=== PATIENT | female | born 1995 | race Caucasian/White ===

== ENCOUNTER 2018-03-28 22:21 | Inpatient (IN) ==
--- NOTE | 2018-03-28 22:46 | Emergency Department Note ---
Disposition Clinical Impression: Suicidal ideation, Suicide attempt, Auditory hallucinations Urinary tract infection Qualifiers: Urinary tract infection type: acute cystitis Hematuria presence: without hematuria Qualified Code(s): N30.00 - Acute cystitis without hematuria Disposition: Admitted As Inpatient Condition: Fair Forms: ED Satisfaction Letter General Adult HPI - General Chief complaint: ED Psychiatric Symptoms Stated complaint: SI Time Seen by Provider: 03/28/18 22:22 Source: patient Mode of arrival: private vehicle Limitations: no limitations Nursing Notes Reviewed: Yes Vital Signs Reviewed: Yes - History of Present Illness HPI Narrative: Patient is a 22-year-old female with past medical history including anxiety and depression not on medication, seizure not on any antiepileptic medication, presenting with suicidal ideation and attempt. Patient states for the last week she feels like harming herself states she wants to kill herself. She tried twice this past week by overdosing on medication including Xanax and Suboxone. She also states she has auditory hallucinations telling her to harm herself that are worse when she takes a Xanax. Tonight, the patient took 3 bars of Xanax and 3 pills of Suboxone along with a 4 simba to kill herself. Patient was dropped off at her cousin's house and the cousin brought her in to get help. Patient complains of some left-sided abdominal pain and nausea otherwise denies any other complaints. She denies the intent to harm others. She has never received hospitalization in the past. She states she has not followed up with the psychiatrist either. Pain Scale: 0 - Related Data Home Medications Medication Instructions Recorded Confirmed [place] 5-325 mg 01/10/18 Previous Rx's Medication Instructions Recorded Naproxen [Naprosyn] 500 mg PO BID PRN #20 tablet 01/10/18 Allergies Allergy/AdvReac Type Severity Reaction Status Date / Time No Known Allergies Allergy Verified 01/10/18 16:18 All systems ED: reviewed and negative except as stated. Review of Systems: As Per HPI Constitutional: Denies: fever, chills Eyes: Denies: vision change ENT ED: Denies: throat pain, congestion Cardiovascular: Denies: chest pain, palpitations Respiratory: Denies: cough, dyspnea Gastrointestinal: Reports: abdominal pain, nausea. Denies: vomiting, diarrhea Genitourinary: Denies: dysuria Neurological: Denies: headache, weakness, paresthesias Psychiatric: Reports: anxiety, depression, suicidal thoughts, auditory coles llucinations. Denies: homicidal thoughts, visual hallucinations Past Medical History - Past Medical History Attestation: Yes The following information was validated with the patient. Source: patient Medical history: Reports: seizures Psychiatric history: Reports: no psych history - Social History Smoking Status: Current every day smoker Smokeless Tobacco Status: No Alcohol use: Reports: none Drug use: Reports: other Physical Exam - General Limitations: no limitations General appearance: alert, in no apparent distress - Head Head exam: atraumatic, normocephalic - Eye Eye exam: Present: normal appearance, PERRL, EOMI. Absent: conjunctival injection - ENT ENT exam: normal exam, normal oropharynx, mucous membranes moist - Neck Neck exam: Present: normal inspection, trachea midline - Chest Chest inspection: Present: normal inspection, symmetric chest wall rise - Respiratory Respiratory exam: Present: other (Bilateral expiratory wheezing with no rhonchi or rales.) - Cardiovascular Cardiovascular exam: Present: regular rate, normal rhythm, normal heart sounds - Abdominal Exam Abdominal exam: Present: soft, Non-Tender. Absent: tenderness, distention, guarding, rebound, rigidity - Extremities Exam Extremities exam: Present: normal inspection, full ROM. Absent: tenderness, pedal edema - Neurological Exam Neurological exam: Present: alert, oriented X3 - Psychiatric Psychiatric exam: Present: anxious, suicidal ideation - Skin Skin exam: Present: warm, dry, intact Course Vital Signs Temperature 97.8 F 03/28/18 22:26 Pulse Rate 106 03/28/18 22:26 Respiratory Rate 16 03/28/18 22:26 Blood Pressure 143/87 03/28/18 22:26 O2 Sat by Pulse Oximetry 100 03/28/18 22:26 Temperature 98.2 F 03/28/18 23:10 Pulse Rate 82 03/29/18 00:58 Respiratory Rate 16 03/29/18 00:58 Blood Pressure 110/74 03/29/18 00:58 O2 Sat by Pulse Oximetry 99 03/29/18 00:58 Oxygen Delivery Oxygen Delivery Room Air Medical Decision Making - MDM Narrative Medical decision making narrative: Patient presenting with suicidal ideation and attempt. She appears skittish and states the light is bothering her and complains of nausea. She is easily distractable. She also has auditory hallucinations. We will obtain medical clearance and pink slip signed out. Once labs return, psychiatry will evaluate the patient. Will call poison control at this time. 22:55 Discussed with poison control at this time who states symptomatic management and observation. If patient does experience [employer] depression we will give Narcan. If anything changes, we will update poison control. They will call back with lab results and EKG. 00:00 [facility] was notified that lab work is returned. Alcohol level <10. She does have a urinary tract infection which we will treat for with Keflex. She will be evaluated by [facility]. Urine drug screen positive for marijuana. Electrolytes normal. TSH normal. No other acute findings. 02:00 Discussed with [facility] psychiatry. They will accept the patient. Vitals have remained stable. She has no new complaints at this time. - Medical Records Medical records reviewed: Yes I reviewed the patient's medical records. - Lab Data Lab results reviewed: Yes I reviewed the patient's lab results. Result diagrams: 03/28/18 22:59 03/28/18 22:59 Lab Results 03/28/18 03/28/18 03/28/18 Range/Units 22:59 22:59 23:07 WBC 11.7 H (4.3-11.1) K/mcL RBC 4.74 (3.82-4.97) M/mcL Hgb 10.1 L (11.5-15.4) g/dL Hct 33.3 L (35.3-44.9) % MCV 70.3 L (83.0-100.0) fL MCH 21.3 L (28.0-33.3) pg MCHC 30.3 L (31.6-35.5) g/dL RDW 17.9 H (11.5-14.5) % Plt Count 354 (140-400) K/mcL MPV 9.3 L (9.4-12.4) fL Immature Gran % 0.4 (0-4) % Seg Neutrophils % 64.7 % Lymphocytes % 26.7 % Monocytes % 5.9 % Eosinophils % 2.0 % Basophils % 0.3 % Neutrophils # 7.6 (1.6-8.9) K/mcL Lymphocytes # 3.1 (0.6-4.6) K/mcL Monocytes # 0.7 (0.0-1.3) K/mcL Eosinophils # 0.2 (0.0-0.6) K/mcL Basophils # 0.0 (0.0-0.2) K/mcL Sodium 140 (136-145) mEq/L Potassium 3.8 (3.5-5.1) mEq/L Chloride 110 H (98-107) mEq/L Carbon Dioxide 23 (23-29) mEq/L BUN 8 (6-20) mg/dL Creatinine 0.58 L (0.60-1.20) mg/dL Est GFR ( Amer) > 60 (> 60) Est GFR (Non-Af Amer) > 60 (> 60) BUN/Creatinine Ratio 14 (6-26) Glucose 83 (70-105) mg/dL Calculated Osmolality 287 (280-300) Calcium 9.2 (8.6-10.3) mg/dL TSH 1.318 (0.340-5.600) mcIU/mL Urine Color Yellow (Yellow) Urine Clarity Cloudy A (Clear) Urine pH 6.5 (5.0-8.0) pH Units Ur Specific [place] 1.029 H (1.010-1.025) Urine Protein Negative (Neg-Trace) mg/dL Urine Glucose (UA) Normal (Normal) mg/dL Urine Ketones Trace H (Negative) mg/dL Urine Blood Negative (Negative) Urine Nitrite Positive A (Negative) Urine Bilirubin Negative (Negative) Urine Urobilinogen Normal (Normal) mg/dL Ur Leukocyte Esterase Negative (Negative) Urine Microscopic RBC 0-3 (0-3) per hpf Urine Microscopic WBC 3-5 H (0-3) per hpf Ur Squamous Epith Cells Many H (None-Few) per lpf Urine Bacteria Many H (None-Few) per hpf Hyaline Casts Test Not Performed Urine Mucus Moderate H (Few) Urine Test (Negative) Salicylates < 2.5 L (15.0-30.0) mg/dL Urine Opiates Screen (Lbwopg=517) ng/mL Acetaminophen < 10 L (10-20) mcg/mL Ur Barbiturates Screen (Xqgylq=546) ng/mL Ur Phencyclidine Scrn (Cutoff=25) ng/mL Ur Amphetamines Screen (Tybhik=5022) ng/mL U Benzodiazepines Scrn (Yrrpsu=726) ng/mL Urine Cocaine Screen (Cutoff= 300) ng/mL U Marijuana (THC) Screen (Cutoff = 50) ng/mL Ur Drug Screen Interp Ethyl Alcohol < 10 (Less than 10) mg/dL 03/28/18 03/28/18 Range/Units 23:07 23:07 WBC (4.3-11.1) K/mcL RBC (3.82-4.97) M/mcL Hgb (11.5-15.4) g/dL Hct (35.3-44.9) % MCV (83.0-100.0) fL MCH (28.0-33.3) pg MCHC (31.6-35.5) g/dL RDW (11.5-14.5) % Plt Count (140-400) K/mcL MPV (9.4-12.4) fL Immature Gran % (0-4) % Seg Neutrophils % % Lymphocytes % % Monocytes % % Eosinophils % % Basophils % % Neutrophils # (1.6-8.9) K/mcL Lymphocytes # (0.6-4.6) K/mcL Monocytes # (0.0-1.3) K/mcL Eosinophils # (0.0-0.6) K/mcL Basophils # (0.0-0.2) K/mcL Sodium (136-145) mEq/L Potassium (3.5-5.1) mEq/L Chloride (98-107) mEq/L Carbon Dioxide (23-29) mEq/L BUN (6-20) mg/dL Creatinine (0.60-1.20) mg/dL Est GFR ( Amer) (> 60) Est GFR (Non-Af Amer) (> 60) BUN/Creatinine Ratio (6-26) Glucose (70-105) mg/dL Calculated Osmolality (280-300) Calcium (8.6-10.3) mg/dL TSH (0.340-5.600) mcIU/mL Urine Color (Yellow) Urine Clarity (Clear) Urine pH (5.0-8.0) pH Units Ur Specific [place] (1.010-1.025) Urine Protein (Neg-Trace) mg/dL Urine Glucose (UA) (Normal) mg/dL Urine Ketones (Negative) mg/dL Urine Blood (Negative) Urine Nitrite (Negative) Urine Bilirubin (Negative) Urine Urobilinogen (Normal) mg/dL Ur Leukocyte Esterase (Negative) Urine Microscopic RBC (0-3) per hpf Urine Microscopic WBC (0-3) per hpf Ur Squamous Epith Cells (None-Few) per lpf Urine Bacteria (None-Few) per hpf Hyaline Casts Urine Mucus (Few) Urine Test Negative (Negative) Salicylates (15.0-30.0) mg/dL Urine Opiates Screen Negative (Lgxbrp=360) ng/mL Acetaminophen (10-20) mcg/mL Ur Barbiturates Screen Negative (Nxiivr=825) ng/mL Ur Phencyclidine Scrn Negative (Cutoff=25) ng/mL Ur Amphetamines Screen Negative (Yeurgw=6562) ng/mL U Benzodiazepines Scrn Negative (Dpwtjh=355) ng/mL Urine Cocaine Screen Negative (Cutoff= 300) ng/mL U Marijuana (THC) Screen Positive H (Cutoff = 50) ng/mL Ur Drug Screen Interp See Below Ethyl Alcohol (Less than 10) mg/dL - EKG Data EKG #1 EKG attestation: Yes I reviewed and interpreted this EKG. EKG results narrative: EKG obtained at 2248 reviewed shows sinus rhythm with heart rate 93. IL interval 150. QRS duration 87. QTC 427. There is no ST elevation or depression and no old EKG to compare to. Attestation Statement - Attestation Attestation: I, Antwon Suh DO, examined this patient [id number] and my medical decision-making was reviewed with Dr. Sonya Yuan , Resident Physician. I agree with the documented findings, disposition and treatment plan as described except to the extent set forth below. Please see my progress notes for details.
--- NOTE | 2018-03-28 22:58 | Emergency Department Note ---
Disposition Clinical Impression: Suicidal ideation, Suicide attempt, Auditory hallucinations Urinary tract infection Qualifiers: Urinary tract infection type: acute cystitis Hematuria presence: without hematuria Qualified Code(s): N30.00 - Acute cystitis without hematuria Disposition: Admitted As Inpatient Condition: Fair Referrals: NONE,PCP [Primary Care Provider] - Forms: ED Satisfaction Letter Time of Disposition: 02:04 General Adult HPI - General Chief complaint: ED Psychiatric Symptoms Stated complaint: SI Time Seen by Provider: 03/28/18 22:22 Source: patient Mode of arrival: private vehicle Limitations: no limitations - History of Present Illness Pain Scale: 0 - Related Data Home Medications Medication Instructions Recorded Confirmed [place] 5-325 mg 01/10/18 Previous Rx's Medication Instructions Recorded Naproxen [Naprosyn] 500 mg PO BID PRN #20 tablet 01/10/18 Allergies Allergy/AdvReac Type Severity Reaction Status Date / Time No Known Allergies Allergy Verified 01/10/18 16:18 Constitutional: Denies: fever, chills Eyes: Denies: vision change ENT ED: Denies: throat pain, congestion Cardiovascular: Denies: chest pain, palpitations Respiratory: Denies: cough, dyspnea Gastrointestinal: Reports: abdominal pain, nausea. Denies: vomiting, diarrhea Genitourinary: Denies: dysuria Neurological: Denies: headache, weakness, paresthesias Psychiatric: Reports: anxiety, depression, suicidal thoughts, auditory hallucinations. Denies: homicidal thoughts, visual hallucinations Past Medical History - Past Medical History Medical history: Reports: seizures Psychiatric history: Reports: no psych history - Social History Smoking Status: Current every day smoker Smokeless Tobacco Status: No Alcohol use: Reports: none Drug use: Reports: other Physical Exam - General Limitations: no limitations General appearance: alert, in no apparent distress Course Vital Signs Temperature 97.8 F 03/28/18 22:26 Pulse Rate 106 03/28/18 22:26 Respiratory Rate 16 03/28/18 22:26 Blood Pressure 143/87 03/28/18 22:26 O2 Sat by Pulse Oximetry 100 03/28/18 22:26 Temperature 98.2 F 03/28/18 23:10 Pulse Rate 82 03/29/18 00:58 Respiratory Rate 16 03/29/18 00:58 Blood Pressure 110/74 03/29/18 00:58 O2 Sat by Pulse Oximetry 99 01/29/19 00:58 Oxygen Delivery Oxygen Delivery Room Air Medical Decision Making - Lab Data Result diagrams: 03/28/18 22:59 03/28/18 22:59 Lab Results 03/28/18 03/28/18 03/28/18 Range/Units 22:59 22:59 23:07 WBC 11.7 H (4.3-11.1) K/mcL RBC 4.74 (3.82-4.97) M/mcL Hgb 10.1 L (11.5-15.4) g/dL Hct 33.3 L (35.3-44.9) % MCV 70.3 L (83.0-100.0) fL MCH 21.3 L (28.0-33.3) pg MCHC 30.3 L (31.6-35.5) g/dL RDW 17.9 H (11.5-14.5) % Plt Count 354 (140-400) K/mcL MPV 9.3 L (9.4-12.4) fL Immature Gran % 0.4 (0-4) % Seg Neutrophils % 64.7 % Lymphocytes % 26.7 % Monocytes % 5.9 % Eosinophils % 2.0 % Basophils % 0.3 % Neutrophils # 7.6 (1.6-8.9) K/mcL Lymphocytes # 3.1 (0.6-4.6) K/mcL Monocytes # 0.7 (0.0-1.3) K/mcL Eosinophils # 0.2 (0.0-0.6) K/mcL Basophils # 0.0 (0.0-0.2) K/mcL Sodium 140 (136-145) mEq/L Potassium 3.8 (3.5-5.1) mEq/L Chloride 110 H (98-107) mEq/L Carbon Dioxide 23 (23-29) mEq/L BUN 8 (6-20) mg/dL Creatinine 0.58 L (0.60-1.20) mg/dL Est GFR ( Amer) > 60 (> 60) Est GFR (Non-Af Amer) > 60 (> 60) BUN/Creatinine Ratio 14 (6-26) Glucose 83 (70-105) mg/dL Calculated Osmolality 287 (280-300) Calcium 9.2 (8.6-10.3) mg/dL TSH 1.318 (0.340-5.600) mcIU/mL Urine Color Yellow (Yellow) Urine Clarity Cloudy A (Clear) Urine pH 6.5 (5.0-8.0) pH Units Ur Specific [place] 1.029 H (1.010-1.025) Urine Protein Negative (Neg-Trace) mg/dL Urine Glucose (UA) Normal (Normal) mg/dL Urine Ketones Trace H (Negative) mg/dL Urine Blood Negative (Negative) Urine Nitrite Positive A (Negative) Urine Bilirubin Negative (Negative) Urine Urobilinogen Normal (Normal) mg/dL Ur Leukocyte Esterase Negative (Negative) Urine Microscopic RBC 0-3 (0-3) per hpf Urine Microscopic WBC 3-5 H (0-3) per hpf Ur Squamous Epith Cells Many H (None-Few) per lpf Urine Bacteria Many H (None-Few) per hpf Hyaline Casts Test Not Performed Urine Mucus Moderate H (Few) Urine Test (Negative) Salicylates < 2.5 L (15.0-30.0) mg/dL Urine Opiates Screen (Yatdol=448) ng/mL Acetaminophen < 10 L (10-20) mcg/mL Ur Barbiturates Screen (Csbftp=124) ng/mL Ur Phencyclidine Scrn (Cutoff=25) ng/mL Ur Amphetamines Screen (Rpkgpi=5032) ng/mL U Benzodiazepines Scrn (Phyxmi=240) ng/mL Urine Cocaine Screen (Cutoff= 300) ng/mL U Marijuana (THC) Screen (Cutoff = 50) ng/mL Ur Drug Screen Interp Ethyl Alcohol < 10 (Less than 10) mg/dL 03/28/18 03/28/18 Range/Units 23:07 23:07 WBC (4.3-11.1) K/mcL RBC (3.82-4.97) M/mcL Hgb (11.5-15.4) g/dL Hct (35.3-44.9) % MCV (83.0-100.0) fL MCH (28.0-33.3) pg MCHC (31.6-35.5) g/dL RDW (11.5-14.5) % Plt Count (140-400) K/mcL MPV (9.4-12.4) fL Immature Gran % (0-4) % Seg Neutrophils % % Lymphocytes % % Monocytes % % Eosinophils % % Basophils % % Neutrophils # (1.6-8.9) K/mcL Lymphocytes # (0.6-4.6) K/mcL Monocytes # (0.0-1.3) K/mcL Eosinophils # (0.0-0.6) K/mcL Basophils # (0.0-0.2) K/mcL Sodium (136-145) mEq/L Potassium (3.5-5.1) mEq/L Chloride (98-107) mEq/L Carbon Dioxide (23-29) mEq/L BUN (6-20) mg/dL Creatinine (0.60-1.20) mg/dL Est GFR ( Amer) (> 60) Est GFR (Non-Af Amer) (> 60) BUN/Creatinine Ratio (6-26) Glucose (70-105) mg/dL Calculated Osmolality (280-300) Calcium (8.6-10.3) mg/dL TSH (0.340-5.600) mcIU/mL Urine Color (Yellow) Urine Clarity (Clear) Urine pH (5.0-8.0) pH Units Ur Specific [place] (1.010-1.025) Urine Protein (Neg-Trace) mg/dL Urine Glucose (UA) (Normal) mg/dL Urine Ketones (Negative) mg/dL Urine Blood (Negative) Urine Nitrite (Negative) Urine Bilirubin (Negative) Urine Urobilinogen (Normal) mg/dL Ur Leukocyte Esterase (Negative) Urine Microscopic RBC (0-3) per hpf Urine Microscopic WBC (0-3) per hpf Ur Squamous Epith Cells (None-Few) per lpf Urine Bacteria (None-Few) per hpf Hyaline Casts Urine Mucus (Few) Urine Test Negative (Negative) Salicylates (15.0-30.0) mg/dL Urine Opiates Screen Negative (Elmpch=952) ng/mL Acetaminophen (10-20) mcg/mL Ur Barbiturates Screen Negative (Qlmquf=269) ng/mL Ur Phencyclidine Scrn Negative (Cutoff=25) ng/mL Ur Amphetamines Screen Negative (Jeoiwv=8347) ng/mL U Benzodiazepines Scrn Negative (Aezyyt=169) ng/mL Urine Cocaine Screen Negative (Cutoff= 300) ng/mL U Marijuana (THC) Screen Positive H (Cutoff = 50) ng/mL Ur Drug Screen Interp See Below Ethyl Alcohol (Less than 10) mg/dL Attestation Statement - Attestation Attestation: I, Antwon Suh DO, examined this patient [id number] and my medical decision-making was reviewed with Dr. Sonya Yuan , Resident Physician. I agree with the documented findings, disposition and treatment plan as described except to the extent set forth below. Please see my progress notes for details. 22-year-old female presents emergency room for evaluation of suicidal ideation. She is been telling her cousin over the last 2 weeks that she has want to kill herself. Tonight she took several tablets of Xanax as well as Suboxone and was drinking alcohol. She is doing this and attempt to kill herself. She also has some auditory hallucinations. Medical clearance will be establishing this time. Patient is resting in the bed. She does appear to have tangential thought and is distractible during conversation. She is otherwise alert. Pupils are reactive. Oropharynx is patent. Trachea is midline. Lungs are clear. Heart is regular. Abdomen is soft. No visible signs of trauma injury to the extremities at this time. Screening evaluation will be established psychiatric team will evaluate. Patient control has been contacted. EKG will be collected CBC chemistry screening labs. Disposition pending psychiatric evaluation treatment. See detailed documentation the physical exam, medical intervention, medical decision-making and disposition in the resident physician's note. No critical care provider the patient's treatment course at this time. 0005 Psychiatric team has been contacted after medical clearance was completed. To call somebody and at this time for evaluation. Patient will be monitoring emergency room until the evaluation has been established. Otherwise patient has been resting comfortably in the bed. 0200 Patient was evaluated by the psychiatric team. She will be admitted at this time for continued medical management and psychiatric treatment. Patient is otherwise stable. First dose of antibiotics for urinary tract infection were given. No other acute findings at this time.
[2018-03-28 23:10] LABS: Basophils % 0.3 %; Eosinophils # 0.2 K/mcL (0.0-0.6); Hematocrit 33.3 % (35.3-44.9); Hemoglobin 10.1 g/dL (11.5-15.4); Immature Granulocytes % 0.4 % (0-4); Lymphocytes # 3.1 K/mcL (0.6-4.6); Lymphocytes % 26.7 %; Mean Corpuscular HGB Conc 30.3 g/dL (31.6-35.5); Mean Corpuscular Hemoglobin 21.3 pg (28.0-33.3); Mean Corpuscular Volume 70.3 fL (83.0-100.0); Mean Platelet Volume 9.3 fL (9.4-12.4); Monocytes # 0.7 K/mcL (0.0-1.3); Monocytes % 5.9 %; Neutrophils # 7.6 K/mcL (1.6-8.9); Platelet Count 354 K/mcL (140-400); Red Blood Count 4.74 M/mcL (3.82-4.97); Red Cell Distribution Width 17.9 % (11.5-14.5); Segmented Neutrophils % 64.7 %
[2018-03-28 23:17] LABS: Bilirubin,Urine Negative (Negative); Blood,Urine Negative (Negative); Clarity,Urine Cloudy (Clear); Color,Urine Yellow (Yellow); Glucose,Urine (UA) Normal (Normal); Ketones,Urine Trace mg/dL (Negative); Leukocyte Esterase,Urine Negative (Negative); Nitrite,Urine Positive (Negative); PH,Urine 6.5 pH Units (5.0-8.0); Protein,Urine Negative (Neg-Trace); Specific Gravity,Urine 1.029 (1.010-1.025); Urobilinogen,Urine Normal (Normal)
[2018-03-28 23:28] LABS: Bacteria,Urine Many per hpf (None-Few); RBC,Urine 0-3 per hpf (0-3); Squamous Epithelial Cell,Urine Many per lpf (None-Few)
[2018-03-28 23:29] LABS: Acetaminophen < 10 mcg/mL (10-20); BUN/Creatinine Ratio 14 (6-26); Blood Urea Nitrogen 8 mg/dL (6-20); Calcium 9.2 mg/dL (8.6-10.3); Carbon Dioxide 23 mEq/L (23-29); Chloride 110 mEq/L (98-107); Ethanol < 10 mg/dL (Less than 10); Glucose 83 mg/dL (70-105); Osmolality,Calculated 287 (280-300); Potassium 3.8 mEq/L (3.5-5.1); Salicylate < 2.5 mg/dL (15.0-30.0); Sodium 140 mEq/L (136-145); eGFR For Non-African Americans > 60 (> 60)
[2018-03-28 23:37] LABS: Mucus,Urine Moderate (Few)
[2018-03-28 23:49] LABS: Thyroid Stimulating Hormone 1.318 mcIU/mL (0.340-5.600)
[2018-03-29 00:07] LABS: Amphetamine Screen,Urine Negative ng/mL (Cutoff=1000); Barbiturate Screen,Urine Negative ng/mL (Cutoff=200); Benzodiazepines Screen,Urine Negative ng/mL (Cutoff=200); Cannabinoid Screen,Urine Positive ng/mL (Cutoff = 50); Cocaine Screen,Urine Negative ng/mL (Cutoff= 300); Opiate Screen,Urine Negative ng/mL (Cutoff=300); Phencyclidine Screen,Urine Negative ng/mL (Cutoff=25)
[2018-03-29] MEDS ORDERED: cephALEXin 250 MG CAPSULE PO STA (00:17)
[2018-03-29] MEDS ORDERED: Mag Hydrox/Al Hydrox/Simeth 30 ML UDC PO PRN (02:18)
[2018-03-29] MEDS ORDERED: Haloperidol Lactate 5 MG/ML VIAL IM PRN (02:18)
[2018-03-29] MEDS ORDERED: *HR* LORazepam 1 MG TABLET PO PRN (02:18)
[2018-03-29] MEDS ORDERED: Ibuprofen 400 MG TABLET PO PRN (02:18)
[2018-03-29] MEDS ORDERED: MOM Conc 10 ML UD.LIQ PO PRN (02:18)
[2018-03-29] MEDS ORDERED: *HR* LORazepam 2 MG/ML VIAL IM PRN (02:18)
[2018-03-29] MEDS: cephALEXin 500 MG CAPSULE PO SCH ×2 (10:05→20:22)
--- NOTE | 2018-03-29 10:15 | Psychiatry History & Physical ---
Date of Encounter: 03/29/18 Time of Encounter: 10:06 History of Present Illness Patient Stated Chief Complaint: suicidal ideation Medicare Admission Attestation: For traditional Medicare patients the provided hospital inpatient services are reasonable and necessary and in the case of services not specified as inpatient-only under 42 CFR 419.22 (n), that they are appropriately provided as inpatient services in accordance 42 CFR 412.3. For Critical Access Hospital the patient may reasonably be expected to be discharged or transferred to a hospital within 96 hours after admission to the Critical Access Hospital. Admitted From: Home Plans for Post Hospital Care: Home History of Present Illness: Ms. Sánchez is a 22 year old female who was admitted secondary to suicidal ideation. According to client this is her first linkage with mental health care. She has never been inpatient, never seen a psychiatrist, and never been on medications. No family history of mental illness. However, client reports she has attempted to overdose "many times" in her life. She also reports rage episodes where she "blacks out" and injures herself including hitting herself with her fists and cutting herself. This time client was in [place] with her boyfriend. He apparently had a warrant out for his arrest and was picked up. Client does not drive so friends picked her up. While at her friend's house client reports she overdosed on medications she found in the home. Does not know what they were. Friend drove her back to [place]. Client was dropped off at her cousin's house and her cousin brought her to the ER. Client plans to return to live with her cousin when discharged. Client reports her father kicked her out of the house a year ago and she has been living with friends/rela tives ever since. Client denies having any medical problems other than "stress induced seizures." She denies medication allergies. Denies substance abuse issues except for THC which she reports using to control her seizures. Discussed treatment options. Client agreeable to a med trial of Zoloft. Also discussed counseling. Client is worried about transportation as an outpatient but recognizes that therapy will be important. No evidence of a thought disorder although client endorses voices in her head. Her voices seem to be driven more by anxiety than genuine psychosis. Will start with Zoloft and go from there. Past Med Surg Social Fam HX - Past Medical History Medical history: seizures - Past Psychiatric History Psychiatric history: Reports: no psych history Family psychiatric history: No Family History of Suicide: Unknown - Past Surgical History Surgical History: no surgical history - Social History Smoking Status: Current every day smoker Smokeless Tobacco Status: No Alcohol use: heavy Drug use: marijuana, other Medications & Allergies Allergy/AdvReac Type Severity Reaction Status Date / Time No Known Allergies Allergy Verified 01/10/18 16:18 Review of Systems Constitutional: Denies: fever, chills, weakness, weight change Eyes: Denies: eye pain, vision change Ears, Nose, Throat: Denies: ear pain, throat pain, dental pain, hearing loss, congestion Cardiovascular: Denies: chest pain, palpitations, dyspnea on exertion Respiratory: Denies: cough, dyspnea, wheezes Gastrointestinal: Denies: abdominal pain, nausea, vomiting, diarrhea, constipation Genitourinary female: Denies: urgency, dysuria, frequency, abnormal menses, dyspareunia Musculoskeletal: Denies: joint swelling, joint pain Integumentary: Denies: rash, lesions, pruritus Neurological: Denies: headache, weakness, numbness, memory loss Endocrine: Denies: fatigue, heat or cold intolerance Hematologic/Lymphatic: Denies: easy bruising, lymphadenopathy Allergic/Immunologic: Denies: urticaria, itchy eyes Exam - HEENT Head exam IM: Present: atraumatic Eye exam IM: Present: EOMI, normal appearance, PERRL ENT exam IM: Present: normal exam - Neurological Neurological exam: Present: CN II-XII intact - Respiratory Respiratory exam IM: Present: CTAB - GI/Abdominal GI/Abdominal exam IM: Present: normal bowel sounds, soft. Absent: tenderness - Extremities Extremities exam IM: Present: full ROM - Skin Skin exam IM: Present: dry, warm - Constitutional Vitals: Temp Pulse Resp BP Pulse Ox 98.1 F 75 18 99/63 96 03/29/18 08:44 03/29/18 08:44 03/29/18 08:44 03/29/18 08:44 03/29/18 08:44 General appearance: age & developmentally appropriate, well-groomed, well- nourished - Musculoskeletal Gait: normal Station: relaxed Strength & Tone: normal for patient - Psychiatric Patient Orientation: Yes Person, Yes Time, Yes Place Level of alertness: Alert Behavior: calm, cooperative Psychomotor activity: Normal Eye Contact: Minimal Contact Mood Description: Depressed Affect description: congruent with mood Speech Volume: Normal Speech pattern: normal rate, normal rhythm, normal tone, fluent, spontaneous Language & Vocabulary: consistent with education Thought Process: Linear Thought Content: Yes Suicidal ideation, No Homicidal ideation, No Overt delusions Perceptual Disturbances: No Reacting to internal stimuli, Yes Auditory hallucinations Attention Span Ability: Capable of Focused Attention Memory Description: Grossly Intact Patient Reliability: Reliable Historian Fund of knowledge: Yes abstraction ability, Yes average, Yes aware of current events Intelligence Estimate: Average Judgment: Limited Insight: Partial Results - Drug Levels and Toxicology Drug Levels and Toxicology: Drug Levels and Toxicity 03/28/18 03/28/18 22:59 23:07 Urine Opiates Screen Negative Acetaminophen < 10 L Ur Barbiturates Screen Negative Ur Phencyclidine Scrn Negative Ur Amphetamines Screen Negative U Benzodiazepines Scrn Negative Urine Cocaine Screen Negative U Marijuana (THC) Screen Positive H Ethyl Alcohol < 10 - Labs Labs: Laboratory Last Values WBC 11.7 K/mcL (4.3-11.1) H 03/28/18 22:59 RBC 4.74 M/mcL (3.82-4.97) 03/28/18 22:59 Hgb 10.1 g/dL (11.5-15.4) L 03/28/18 22:59 Hct 33.3 % (35.3-44.9) L 03/28/18 22:59 MCV 70.3 fL (83.0-100.0) L 03/28/18 22:59 MCH 21.3 pg (28.0-33.3) L 03/28/18 22:59 MCHC 30.3 g/dL (31.6-35.5) L 03/28/18 22:59 RDW 17.9 % (11.5-14.5) H 03/28/18 22:59 Plt Count 354 K/mcL (140-400) 03/28/18 22:59 MPV 9.3 fL (9.4-12.4) L 03/28/18 22:59 Immature Gran % 0.4 % (0-4) 03/28/18 22:59 Seg Neutrophils % 64.7 % 03/28/18 22:59 Lymphocytes % 26.7 % 03/28/18 22:59 Monocytes % 5.9 % 03/28/18 22:59 Eosinophils % 2.0 % 03/28/18 22:59 Basophils % 0.3 % 03/28/18 22:59 Neutrophils # 7.6 K/mcL (1.6-8.9) 03/28/18 22:59 Lymphocytes # 3.1 K/mcL (0.6-4.6) 03/28/18 22:59 Monocytes # 0.7 K/mcL (0.0-1.3) 03/28/18 22:59 Eosinophils # 0.2 K/mcL (0.0-0.6) 03/28/18 22:59 Basophils # 0.0 K/mcL (0.0-0.2) 03/28/18 22:59 Sodium 140 mEq/L (136-145) 03/28/18 22:59 Potassium 3.8 mEq/L (3.5-5.1) 03/28/18 22:59 Chloride 110 mEq/L (98-107) H 03/28/18 22:59 Carbon Dioxide 23 mEq/L (23-29) 03/28/18 22:59 BUN 8 mg/dL (6-20) 03/28/18 22:59 Creatinine 0.58 mg/dL (0.60-1.20) L 03/28/18 22:59 Est GFR ( Amer) > 60 (> 60) 03/28/18 22:59 Est GFR (Non-Af Amer) > 60 (> 60) 03/28/18 22:59 BUN/Creatinine Ratio 14 (6-26) 03/28/18 22:59 Glucose 83 mg/dL (70-105) 03/28/18 22:59 Calculated Osmolality 287 (280-300) 03/28/18 22:59 Calcium 9.2 mg/dL (8.6-10.3) 03/28/18 22:59 TSH 1.318 mcIU/mL (0.340-5.600) 03/28/18 22:59 Urine Color Yellow (Yellow) 03/28/18 23:07 Urine Clarity Cloudy (Clear) A 03/28/18 23:07 Urine pH 6.5 pH Units (5.0-8.0) 03/28/18 23:07 Ur Specific [place] 1.029 (1.010-1.025) H 03/28/18 23:07 Urine Protein Negative mg/dL (Neg-Trace) 03/28/18 23:07 Urine Glucose (UA) Normal mg/dL (Normal) 03/28/18 23:07 Urine Ketones Trace mg/dL (Negative) H 03/28/18 23:07 Urine Blood Negative (Negative) 03/28/18 23:07 Urine Nitrite Positive (Negative) A 03/28/18 23:07 Urine Bilirubin Negative (Negative) 03/28/18 23:07 Urine Urobilinogen Normal mg/dL (Normal) 03/28/18 23:07 Ur Leukocyte Esterase Negative (Negative) 03/28/18 23:07 Urine Microscopic RBC 0-3 per hpf (0-3) 03/28/18 23:07 Urine Microscopic WBC 3-5 per hpf (0-3) H 03/28/18 23:07 Ur Squamous Epith Cells Many per lpf (None-Few) H 03/28/18 23:07 Urine Bacteria Many per hpf (None-Few) H 03/28/18 23:07 Hyaline Casts Test Not Performed 03/28/18 23:07 Urine Mucus Moderate (Few) H 03/28/18 23:07 Urine Test Negative (Negative) 03/28/18 23:07 Salicylates < 2.5 mg/dL (15.0-30.0) L 03/28/18 22:59 Urine Opiates Screen Negative ng/mL (Zpfhnc=461) 03/28/18 23:07 Acetaminophen < 10 mcg/mL (10-20) L 03/28/18 22:59 Ur Barbiturates Screen Negative ng/mL (Iowcup=823) 03/28/18 23:07 Ur Phencyclidine Scrn Negative ng/mL (Cutoff=25) 03/28/18 23:07 Ur Amphetamines Screen Negative ng/mL (Gpbhgq=2013) 03/28/18 23:07 U Benzodiazepines Scrn Negative ng/mL (Hyuyhc=190) 03/28/18 23:07 Urine Cocaine Screen Negative ng/mL (Cutoff= 300) 03/28/18 23:07 U Marijuana (THC) Screen Positive ng/mL (Cutoff = 50) H 03/28/18 23:07 Ur Drug Screen Interp See Below 03/28/18 23:07 Ethyl Alcohol < 10 mg/dL (Less than 10) 03/28/18 22:59 Assessment and Plan (1) Major depress dis, severe Current visit: Yes Status: Acute Plan: Admit inpatient for safety and stabilization, Close observation, Suicide Precautions per unit protocol, Encourage participation in unit milieu, Group Therapy, Monitor sleep, Monitor appetite Risks, benefits, side effects, alternatives discussed w/pt: Yes Patient agreeable to treatment: Yes Plans for Post Hospital Care: Home Estimated Length of Stay (Days): 4 (2) Borderline personality disorder Current visit: Yes Status: Acute Plan: Admit inpatient for safety and stabilization, Close observation, Suicide Precautions per unit protocol, Encourage participation in unit milieu, Group Therapy, Monitor sleep, Monitor appetite Risks, benefits, side effects, alternatives discussed w/pt: Yes Patient agreeable to treatment: Yes Plans for Post Hospital Care: Home Estimated Length of Stay (Days): 4
[2018-03-29] MEDS ORDERED: Nicotine 2 MG GUM BC PRN (15:11)
--- NOTE | 2018-03-29 18:41 | Electrocardiograph Report ---
[place] [id number] Test Date: 2018-03-28 Pat Name: Kait Sánchez Department: EXAM19 Room: 1A22 Gender: F Rnfa: : 1995 Requested By: Sonya Yuan Order Number: [id number] Reading MD: Paras Dwyer Measurements Intervals [place] Rate: 93 P: 72 TX: 150 QRS: 76 QRSD: 87 T: 33 QT: 343 QTc: 427 Interpretive Statements Sinus rhythm Electronically Signed On 03-29-2018 18:39:31 EST by Paras Dwyer
[2018-03-29] MEDS: hydrOXYzine pamoate 25 MG CAPSULE PO PRN (20:22)
[2018-03-29] MEDS: traZODone 50 MG TABLET PO PRN (20:22)
[2018-03-30] MEDS: cephALEXin 500 MG CAPSULE PO SCH ×2 (08:42→21:49)
--- NOTE | 2018-03-30 10:51 | Psychiatry Progress Note ---
Date of Encounter: 03/30/18 Time of Encounter: 10:47 Subjective Interval history: Client reports she is feeling a little better. Continues to endorse depressed mood with SI but has noticed some improvement with the Zoloft. States the biggest stressor for her today are the voices in her head. Hinted at this yesterday but did not really want to discuss them. Today she is more open. States she hears two negative voices and one positive voice. The negative voices tell her she is worthless and instruct her to hurt herself. States she has heard them since the tenth grade. Does not appear outwardly psychotic. Does not appear to be attending to internal stimuli. She does appear anxious and AH may be more a product of her mood and anxiety. However, client reports she was talking to the voices out loud yesterday and that her peers told her she needed to talk to the doctor about it. Will start a low dose antipsychotic today. Even if AH are a byproduct of anxiety the medication should help. Review of Systems Constitutional: Denies: fever, chills, weakness, weight change Eyes: Denies: eye pain, vision change Ears, Nose, Throat: Denies: ear pain, throat pain, dental pain, hearing loss, congestion Cardiovascular: Denies: chest pain, palpitations, dyspnea on exertion Respiratory: Denies: cough, dyspnea, wheezes Gastrointestinal: Denies: abdominal pain, nausea, vomiting, diarrhea, constipation Musculoskeletal: Denies: joint swelling, joint pain Neurological: Denies: headache, weakness, numbness, memory loss Results - Vital Signs Vital Signs: Temp Pulse Resp BP Pulse Ox 98.2 F 102 16 115/74 98 03/30/18 09:00 03/30/18 09:00 03/30/18 09:00 03/30/18 09:00 03/30/18 09:00 Assessment and Plan (1) Major depress dis, severe Current visit: Yes Status: Acute Plan: Continue hospitalization, Close observation, Suicide Precautions per unit protocol, Encourage participation in unit milieu, Group Therapy, Monitor sleep, Monitor appetite Risks, benefits, side effects, alternatives discussed w/pt: Yes Patient agreeable to treatment: Yes (2) Borderline personality disorder Current visit: Yes Status: Acute Plan: Continue hospitalization, Close observation, Suicide Precautions per unit protocol, Encourage participation in unit milieu, Group Therapy, Monitor sleep, Monitor appetite Risks, benefits, side effects, alternatives discussed w/pt: Yes Patient agreeable to treatment: Yes Consult Discharge Plan - Plan Referrals: NONE,PCP [Primary Care Provider] - Psychiatry Exam - Constitutional Vitals: Temp Pulse Resp BP Pulse Ox 98.2 F 102 16 115/74 98 03/30/18 09:00 03/30/18 09:00 03/30/18 09:00 03/30/18 09:00 03/30/18 09:00 General appearance: age & developmentally appropriate, well-groomed, well- nourished - Musculoskeletal Gait: normal Station: relaxed Strength & Tone: normal for patient - Psychiatric Patient Orientation: Yes Person, Yes Time, Yes Place Level of alertness: Alert Behavior: calm, cooperative Psychomotor activity: Normal Eye Contact: Maintains Eye Contact Mood Description: Depressed, Anxious Affect description: congruent with mood Speech Volume: Normal Speech pattern: normal rate, normal rhythm, normal tone, fluent, spontaneous Language & Vocabulary: consistent with education Thought Process: Linear Thought Content: Yes Suicidal ideation, No Homicidal ideation, No Overt delusions Perceptual Disturbances: No Reacting to internal stimuli, Yes Auditory hallucinations Attention Span Ability: Capable of Focused Attention Memory Description: Grossly Intact Patient Reliability: Reliable Historian Fund of knowledge: Yes abstraction ability, Yes aware of current events Intelligence Estimate: Average Judgment: Fair Insight: Partial
[2018-03-30] MEDS: risperiDONE 0.25 MG TABLET PO SCH (21:49)
[2018-03-30] MEDS: traZODone 50 MG TABLET PO PRN (21:50)
[2018-03-30] MEDS: hydrOXYzine pamoate 25 MG CAPSULE PO PRN (21:50)
[2018-03-31] MEDS: cephALEXin 500 MG CAPSULE PO SCH ×2 (08:24→21:21)
[2018-03-31] MEDS: risperiDONE 0.25 MG TABLET PO SCH (08:24)
--- NOTE | 2018-03-31 10:32 | Psychiatry Progress Note ---
Date of Encounter: 03/31/18 Time of Encounter: 10:29 Subjective Interval history: Client continues to report AH and talking to herself. Also continues to endorse SI. However, she looks much better. Bright and social on the unit. Interacting with peers and attending groups. Visibly anxious at times but responds well to encouragement. Seems to like being in the hospital. Plan is for client to live with her cousin at the time of discharge. May be ready to go as soon as tomorrow. Will increase meds today but suspect only one more dose increase will be needed prior to discharge. Review of Systems Constitutional: Denies: fever, chills, weakness, weight change Eyes: Denies: eye pain, vision change Ears, Nose, Throat: Denies: ear pain, throat pain, dental pain, hearing loss, congestion Cardiovascular: Denies: chest pain, palpitations, dyspnea on exertion Respiratory: Denies: cough, dyspnea, wheezes Gastrointestinal: Denies: abdominal pain, nausea, vomiting, diarrhea, constipation Musculoskeletal: Denies: joint swelling, joint pain Neurological: Denies: headache, weakness, numbness, memory loss Results - Vital Signs Vital Signs: Temp Pulse Resp BP Pulse Ox 97.6 F 92 18 120/70 99 03/31/18 09:00 03/31/18 09:00 03/31/18 09:00 03/31/18 09:00 03/31/18 09:00 Assessment and Plan (1) Major depress dis, severe Current visit: Yes Status: Acute Plan: Continue hospitalization, Close observation, Suicide Precautions per unit protocol, Encourage participation in unit milieu, Group Therapy, Monitor sleep, Monitor appetite Risks, benefits, side effects, alternatives discussed w/pt: Yes Patient agreeable to treatment: Yes (2) Borderline personality disorder Current visit: Yes Status: Acute Plan: Continue hospitalization, Close observation, Suicide Precautions per unit protocol, Encourage participation in unit milieu, Group Therapy, Monitor sleep, Monitor appetite Risks, benefits, side effects, alternatives discussed w/pt: Yes Patient agreeable to treatment: Yes Consult Discharge Plan - Plan Referrals: NONE,PCP [Primary Care Provider] - Psychiatry Exam - Constitutional Vitals: Temp Pulse Resp BP Pulse Ox 97.6 F 92 18 120/70 99 03/31/18 09:00 03/31/18 09:00 03/31/18 09:00 03/31/18 09:00 03/31/18 09:00 General appearance: age & developmentally appropriate - Musculoskeletal Gait: normal Station: relaxed Strength & Tone: normal for patient - Psychiatric Patient Orientation: Yes Person, Yes Time, Yes Place Level of alertness: Alert Behavior: calm, cooperative Psychomotor activity: Normal Eye Contact: Maintains Eye Contact Mood Description: Depressed, Anxious Affect description: full range Speech Volume: Normal Speech pattern: normal rate, normal rhythm, normal tone, fluent, spontaneous Language & Vocabulary: consistent with education Thought Process: Linear Thought Content: Yes Suicidal ideation, No Homicidal ideation, No Overt delusions Perceptual Disturbances: No Reacting to internal stimuli, Yes Auditory hallucinations Attention Span Ability: Capable of Focused Attention Memory Description: Grossly Intact Patient Reliability: Reliable Historian Fund of knowledge: Yes abstraction ability Intelligence Estimate: Average Judgment: Fair Insight: Partial
[2018-03-31] MEDS: hydrOXYzine pamoate 25 MG CAPSULE PO PRN (21:21)
[2018-03-31] MEDS: risperiDONE 1 MG TABLET PO SCH (21:25)
[2018-04-01 08:45] VITALS: BP 121/81
[2018-04-01] MEDS: risperiDONE 1 MG TABLET PO SCH (09:35)
[2018-04-01] MEDS: cephALEXin 500 MG CAPSULE PO SCH (09:35)
--- NOTE | 2018-04-01 09:40 | Discharge Summary ---
Date of Encounter: 04/01/18 Time of Encounter: 09:32 Diagnosis - Discharge Diagnosis (1) Major depress dis, severe Status: Acute (2) Borderline personality disorder Status: Acute Medications - Discharge Medications Prescriptions: cephALEXin [Keflex] 500 mg PO BID #8 capsule risperiDONE [RisperDAL] 1 mg PO BID #60 tablet Sertraline [Zoloft] 100 mg PO DAILY #30 tablet traZODone [TraZODone] 50 mg PO HS PRN #30 tablet PRN Reason: Insomnia Ferrous Sulfate [Iron] 325 mg PO DAILY 03/29/18 [History] Sertraline [Zoloft] 100 mg PO DAILY #30 tablet 04/01/18 [Rx] cephALEXin [Keflex] 500 mg PO BID #8 capsule 04/01/18 [Rx] risperiDONE [RisperDAL] 1 mg PO BID #60 tablet 04/01/18 [Rx] traZODone [TraZODone] 50 mg PO HS PRN #30 tablet 04/01/18 [Rx] Allergy/AdvReac Type Severity Reaction Status Date / Time No Known Allergies Allergy Verified 01/10/18 16:18 Results Procedures and tests throughout hospitalization: Completed Lab Orders Category Date Time Status Acetaminophen Stat Lab 03/28/18 22:59 Completed Basic Metabolic Panel Stat Lab 03/28/18 22:59 Completed Complete Blood Count [HEME] Stat Lab 03/28/18 22:59 Completed Drug Screen, Urine [UCHEM] Stat Lab 03/28/18 23:07 Completed Ethanol Stat Lab 03/28/18 22:59 Completed Test Result, Urine [URIN] Stat Lab 03/28/18 23:07 Completed Salicylate Stat Lab 03/28/18 22:59 Completed Thyroid Stimulating Hormone Stat Lab 03/28/18 22:59 Completed Urinalysis reflex Microscopic [URIN] Stat Lab 03/28/18 23:07 Completed Provider Date of admission: 03/29/18 02:12 Primary care physician: PCP NONE Discharging clinician: Haritha Chandra Psychiatry Exam - Constitutional Vitals: Temp Pulse Resp BP Pulse Ox 96.6 F L 98 16 121/81 98 04/01/18 08:38 04/01/18 08:38 04/01/18 08:38 04/01/18 08:38 04/01/18 08:38 General appearance: age & developmentally appropriate, well-groomed, well- nourished - Musculoskeletal Gait: normal Station: relaxed Strength & Tone: normal for patient - Psychiatric Patient Orientation: Yes Person, Yes Time, Yes Place Level of alertness: Alert Behavior: calm, cooperative Psychomotor activity: Normal Eye Contact: Maintains Eye Contact Mood Description: Euthymic/stable Affect description: congruent with mood, full range Speech Volume: Normal Speech pattern: normal rate, normal rhythm, normal tone, fluent, spontaneous Language & Vocabulary: consistent with education Thought Process: Linear, Goal Oriented Thought Content: No Suicidal ideation, No Homicidal ideation, No Overt delusions Perceptual Disturbances: No Reacting to internal stimuli, Yes Auditory halluci nations Attention Span Ability: Capable of Focused Attention Memory Description: Grossly Intact Patient Reliability: Reliable Historian Fund of knowledge: Yes abstraction ability, Yes aware of current events Intelligence Estimate: Average Judgment: Fair Insight: Partial Hospital Course Hospital course: Ms. Sánchez is a 22 year old female who was admitted secondary to SI and AH. She was started on a combination of Zoloft, Risperdal, and Trazodone with positive clinical effect. Today client is bright, reactive, social, and future oriented. She is denying SI. She continues to experience AH but does not appear outwardly psychotic. Likes to talk to herself but states "that's just me." Has learned coping skills that she feels capable of applying on an outpatient basis. Sleeping and eating well. Looks much better. Family agrees. Client states her mother has been visiting and is reporting she has her daughter back. Made friends on the unit. Attended and participated in groups. Will be living with cousin who is supportive. This is her first linkage with mental health care and client is reporting feeling much better. Feels safe for discharge. Total time spent with client greater than 30 minutes. - Time Spent with Patient Total time spent providing and/or coordinating discharge services: Assessment and Plan - Patient/Caregiver Discharge Instructions Activity: resume usual activities as tolerated Diet: regular diet - Follow up Plan Follow up with: NONE,PCP [Primary Care Provider] - Functional capacity at discharge: independent ambulation Overall status at discharge: Stable Disposition: Home, Self-Care Quality - Multiple Antipsychotics Patient discharged on 2 or more antipsychotic medications: No Procedures - Procedures Procedures: Medication Management, Crisis Stabilization, Supportive Therapy, Group Therapy
== END 2018-04-01 15:50 | disposition home or self-care (01) | DRG 751 ==
LOC: EMEROOARM 22:21 → 1ANU 03-29 02:12
PROVIDERS: ADMIT Psychiatry & Neurology Psychiatry; ATTEND Psychiatry & Neurology Psychiatry